=== PATIENT | male | born 1960 | race Caucasian/White ===

== ENCOUNTER 2021-07-29 17:42 | Emergency (ER) | payer OTHER ==
[~2021-07-29] VITALS: Ht 172.7 cm; Wt 94.3 kg
[~2021-07-29 17:42] MED LIST: SUDAFED 12 HOU120 MG PO
[2021-07-29] MEDS ORDERED: LOSARTAN-HCTZ1 EAC1 PO (17:55)
[2021-07-29] MEDS ORDERED: SINGULAIR10 MG PO (17:55)
[2021-07-29] MEDS ORDERED: ADVAIR (17:55)
[2021-07-29] MEDS ORDERED: AMOX1TAB5 PO (22:04)
== END 2021-07-29 22:36 | disposition home or self-care (01) ==
LOC: ER 17:42
DX: N39.0 Urinary tract infection, site not specified (principal)

== ENCOUNTER 2024-04-29 09:04 | Emergency (ER) | payer OTHER ==
[~2024-04-29] VITALS: Ht 172.7 cm; Wt 102.5 kg
[~2024-04-29 09:04] MED LIST changes: +ADVAIR; +AMOX1TAB5 PO; +LOSARTAN-HCTZ1 EAC1 PO; +SINGULAIR10 MG PO
[2024-04-29] MEDS ORDERED: IBU600 MG PO (10:38)
[2024-04-29] MEDS ORDERED: NORFLEX100MG PO (10:38)
[2024-04-29] MEDS ORDERED: ORPHENADRINE CITRATE 30 MG/ML AMPUL IM ONE (10:45)
[2024-04-29] MEDS ORDERED: KETOROLAC TROMETHAMINE 60 MG VIAL IM ONE ×2 (10:45→10:50)
[2024-04-29] MEDS ORDERED: DEXAMETHASONE SODIUM PHOSPHATE 4 MG/ML VIAL IM ONE (10:45)
[2024-04-29] MEDS ORDERED: DEXAMETHASONE SODIUM PHOSPHATE 4 MG/ML VIAL ONE (10:50)
[2024-04-29] MEDS ORDERED: ORPHENADRINE CITRATE 30 MG/ML AMPUL ONE (10:50)
== END 2024-04-29 13:01 | disposition home or self-care (01) ==
LOC: ER 09:07
DX: R07.89 Other chest pain (principal); I10 Essential (primary) hypertension; Z88.2 Allergy status to sulfonamides